=== PATIENT | male | born 1990 | race Caucasian/White ===

== ENCOUNTER 2016-12-03 23:41 | Emergency (ER) | payer SELFPAY ==
[~2016-12-03] VITALS: Ht 160 cm; Wt 65.9 kg
[~2016-12-03 23:41] MED LIST: NO CURRENT MEDICATIO; NO HOME MEDICATIONS
[2016-12-03 23:48] VITALS: TEMP 98.4
[2016-12-04 01:44] VITALS: BP 128/80; PULSE 67
== END 2016-12-04 02:30 | disposition home or self-care (01) ==
LOC: COL.ER 23:41
DX: S51.812A Laceration without foreign body of left forearm, initial encounter (principal); Z23 Encounter for immunization; F41.9 Anxiety disorder, unspecified; W26.0XXA Contact with knife, initial encounter; Y92.009 Unspecified place in unspecified non-institutional (private) residence as the place of occurrence of the external cause